=== PATIENT | male | born 1990 ===

== ENCOUNTER 2020-09-13 02:19 | Emergency (ER) | payer OTHER ==
[2020-09-13] MEDS ORDERED: Lidocaine Viscous Sol 2% 15 ml UD Cup ONE (02:30)
[2020-09-13] MEDS ORDERED: Mag-Al 1200 mg/1200 mg/30 ML UDCUP ONE (02:30)
--- NOTE | 2020-09-13 08:39 | RAD ---
EXAM: CHEST ONE VIEW HISTORY: Chest pain. COMPARISON: None FINDINGS: Cardiac silhouette is magnified by projection. The pulmonary vasculature is within normal limits The lungs are clear. The osseous structures are intact. IMPRESSION: No acute cardiopulmonary process.
== END 2020-09-13 03:25 | disposition home or self-care (01) ==
LOC: ERS 02:19
DX: K21.00 Gastro-esophageal reflux disease with esophagitis, without bleeding (principal); F17.210 Nicotine dependence, cigarettes, uncomplicated
CPT/HCPCS: 71045; 93005